=== PATIENT | female | born 1945 | race Caucasian/White ===

== ENCOUNTER → 2018-08-10 | Outpatient (CLI) | payer MEDICARE ==
[2018-08-10 09:02] LABS: Blood Urea Nitrogen 20 mg/dL (7-17)
--- NOTE | 2018-08-10 10:32 | CT ---
EXAMINATION TYPE: CT chest w con DATE OF EXAM: 08/10/2018 COMPARISON: Chest x-ray December 27, 2018 HISTORY: Cough, prior abn exam. Recent abnormal chest x-ray. CT DLP: 343 mGycm. Automated Exposure Control for Dose Reduction was Utilized. TECHNIQUE: CT scan of the thorax is performed following with IV Contrast, patient injected with 100 mL of Isovue 300. FINDINGS: LUNGS: [id number] biapical pleural/parenchyma scarring is seen. There is backwall mild to moder ate underlying emphysematous change most prominent in the upper lungs. No suspicious nodules or karlene s are seen with particular attention to the lateral right lung apex at area of x-ray concern. There i s mild calcified pleural thickening in both lung apices noted seen best on coronal images. No pleural effusion or pneumothorax is evident. MEDIASTINUM: There are no greater than 1 cm hilar or mediastinal lymph nodes. No cardiomegaly or pe ricardial effusion is seen. Main pulmonary artery measures 3.1 cm at bifurcation image 26. There is enlarged right pulmonary artery measuring 2.8 cm axial image 27. Adjacent ascending aorta measures up to 3.4 cm in diameter. At least moderate desiccation is at the mitral valve are present. Mild young ry artery calcifications seen which is noted marked of underlying coronary artery disease. There is m ild/moderate calcified plaque of aorta is prominent in the abdominal aorta. OTHER: Underlying scoliosis is present. IMPRESSION: Mild to moderate underlying emphysematous change without suspicious nodules or adenopathy . No suspicious acute pulmonary process. Underlying pulmonary hypertension suspected.
== END | disposition home or self-care (01) ==
LOC: RADCTMAIN 08:21
PROVIDERS: ATTEND Internal Medicine Critical Care Medicine
DX: J43.9 Emphysema, unspecified (principal)
CPT/HCPCS: 82565; 84520; 71260; 36415; Q9967

== ENCOUNTER → 2022-01-18 | Emergency (ER) | payer MEDICARE ==
[2022-01-18 22:09] LABS: Basophils % (A) 0 %; Eosinophils % (A) 0 %; HCT 38.1 % (34.0-46.0); HGB 12.6 gm/dL (11.4-16.0); Lymphocytes # (A) 0.9 k/uL (1.0-4.8); Lymphocytes % (A) 11 %; MCH 31.2 pg (25.0-35.0); MCHC 33.1 g/dL (31.0-37.0); MCV 94.3 fL (80.0-100.0); Mean Platelet Volume 7.3; Monocytes # (A) 0.6 k/uL (0-1.0); Monocytes % (A) 8 %; Neutrophils # (A) 6.3 k/uL (1.3-7.7); Neutrophils % (A) 78 %; Platelet Count 215 k/uL (150-450); RBC 4.04 m/uL (3.80-5.40); WBC 8.2 k/uL (3.8-10.6)
[2022-01-19 00:41] LABS: Calcium 9.2 mg/dL (8.4-10.2); Magnesium 1.6 mg/dL (1.6-2.3); Total Bilirubin 0.7 mg/dL (0.2-1.3); Total Protein 6.2 g/dL (6.3-8.2)
[2022-01-19 00:43] LABS: Creatine Kinase 71 U/L (30-135); Troponin I <0.012 ng/mL (0.000-0.034)
--- NOTE | 2022-01-19 10:58 | CT ---
EXAM: CT Abdomen and Pelvis With Intravenous Contrast CLINICAL HISTORY: Upper abdominal pains TECHNIQUE: Axial computed tomography images of the abdomen and pelvis with intravenous contrast. CTDI is 14.8 mGy and DLP is 650.1 mGy-cm. This CT exam was performed using one or more of the following dose reduction techniques: automated exposure control, adjustment of the mA and/or kV according to patient size, and/or use of iterative reconstruction technique. COMPARISON: None FINDINGS: Lung bases: Unremarkable. No mass. No consolidation. Heart: Coronary artery and mitral annular calcifications. Mediastinum: Small hiatal hernia. ABDOMEN: Liver: Hepatomegaly. Gallbladder and bile ducts: Cholecystectomy. Probable postcholecystectomy ductal ectasia, but further evaluation could be performed with ERCP or MRCP. Pancreas: Pancreatic ductal dilatation. No evidence of acute pancreatic inflammation. Spleen: Unremarkable. No splenomegaly. Adrenals: Unremarkable. No mass. Kidneys and ureters: No hydronephrosis or obstructing stone. Stomach and bowel: Fluid and gas-filled small bowel loops could represent enteritis in the appropriate clinical setting. Evaluation of the stomach is limited by under distention. Mild prominence of the piedra of the colon is likely secondary to under distention. PELVIS: Appendix: Appendix is not visualized on this exam. Bladder: Prominence of the bladder wall may be secondary to under distention. Please correlate with urinalysis if concerned for cystitis. Reproductive: At freighted uterus. ABDOMEN and PELVIS: Intraperitoneal space: Unremarkable. No free air. No significant fluid collection. Bones/joints: Right convex scoliosis. Degenerative changes of the spine. Grade 1 anterolisthesis of L4 on L5. No acute fracture. No dislocation. Soft tissues: Unremarkable. Vasculature: Atherosclerotic changes of the vasculature. No aortic aneurysm or dissection. Lymph nodes: Unremarkable. No enlarged lymph nodes. IMPRESSION: 1. Cholecystectomy. Probable postcholecystectomy ductal ectasia, but further evaluation could be performed with ERCP or MRCP. 2. Fluid and gas-filled small bowel loops could represent enteritis in the appropriate clinical setting. 3. Prominence of the bladder wall may be secondary to under distention. Please correlate with urinalysis if concerned for cystitis.
--- NOTE | 2022-01-19 17:18 | XR ---
EXAM: XR Chest, 2 Views CLINICAL HISTORY: ITS. REASON XR Reason: CHEST PAIN TECHNIQUE: Frontal and lateral views of the chest. COMPARISON: No relevant prior studies available. FINDINGS: Lungs: Pulmonary hyperexpansion. No clear consolidation. Pleural space: Left apical pleural thickening/scarring. No pneumothorax. Heart: Mild cardiomegaly. Mediastinum: Heavily calcified aorta. Bones/joints: Osseous degenerative changes. IMPRESSION: Pulmonary hyperexpansion. No clear consolidation. Mild cardiomegaly without overt edema
== END ==
LOC: EC 16:20
DX: R07.2 Precordial pain (principal)
CPT/HCPCS: 36415; 80053; 82550; 82553; 83735; 84484; 85025; 71046; 74177; 99284; 96374; 96375; 96361; 96372; Q9967